=== PATIENT | male | born 1960 | race Caucasian/White ===

== ENCOUNTER 2017-06-19 07:51 | Day surgery (SDC) | payer OTHER ==
[2017-06-12 16:53] VITALS: BMI 28.7
[2017-06-19] MEDS ORDERED: PROPOFOL 20 ML ONE ×2 (07:54)
[2017-06-19] MEDS ORDERED: LIDOCAINE HCL/PF 2% SDV 5ML VIAL ONE (08:02)
[2017-06-19 08:08] VITALS: TEMP 97.9
[2017-06-19 10:20] VITALS: BP 116/78; PULSE 65
--- NOTE | 2017-06-21 15:01 | PATH ---
Surgical Pathology Report Patient Name: LUIS ALFREDO SOLO [facility]. Rec. #: [id number] /Age/Gender: 1960 (Age: 56) / M Account: [id number] Location: [facility]-ENDOS[facility] Taken: 06/19/2017 Received: 06/19/2017 Reported: 06/21/2017 Physicians: Nithin Lennon M.D. Specimen(s) Received A: BX CECUM B: BX RIGHT COLON C: BX TRANSVERSE COLON D: BX LEFT COLON E: BX SIGMOID F: BX DISTAL SIGMOID G: BX RECTO SIGMOID H: BX RECTUM Clinical History History of ulcerative colitis Rule out dysplasia Final Diagnosis A. CECUM, BIOPSY: COLONIC MUCOSA SHOWING BENIGN/REACTIVE LYMPHOID AGGREGATE. NEGATIVE FOR COLITIS AND DYSPLASIA. B. RIGHT COLON, BIOPSY: COLONIC MUCOSA SHOWING BENIGN/REACTIVE LYMPHOID AGGREGATE. NEGATIVE FOR COLITIS AND DYSPLASIA. C. TRANSVERSE COLON, BIOPSY: COLONIC MUCOSA SHOWING BENIGN/REACTIVE LYMPHOID AGGREGATES. NEGATIVE FOR COLITIS AND DYSPLASIA. D. LEFT COLON, BIOPSY: COLONIC MUCOSA SHOWING BENIGN/REACTIVE LYMPHOID AGGREGATES. NEGATIVE FOR COLITIS AND DYSPLASIA. E. SIGMOID, BIOPSY: MODERATE CHRONIC ACTIVE COLITIS. NEGATIVE FOR DYSPLASIA. F. DISTAL SIGMOID, BIOPSY: MODERATE CHRONIC ACTIVE COLITIS. NEGATIVE FOR DYSPLASIA. G. RECTOSIGMOID, BIOPSY: MODERATE CHRONIC ACTIVE COLITIS. NEGATIVE FOR DYSPLASIA. H. RECTUM, BIOPSY: MODERATE CHRONIC ACTIVE PROCTITIS. NEGATIVE FOR DYSPLASIA. Electronically Signed Mary Ann Correa M.D. Gross Description A. Received in formalin, labeled "cecum" are 3 mata, irregular portions of soft tissue ranging from 0.2-0.4 cm. in greatest dimension. The specimens are submitted in toto in one cassette. B. Received in formalin, labeled "right colon" are 4 mata, irregular portions of soft tissue ranging from 0.2-0.3 cm. in greatest dimension. The specimens are submitted in toto in one cassette. C. Received in formalin, labeled "transverse" are 5 mata, irregular portions of soft tissue ranging from 0.1-0.2 cm. in greatest dimension. The specimens are submitted in toto in one cassette. D. Received in formalin, labeled "left colon" are 3 mata, irregular portions of soft tissue averaging 0.2 cm. in greatest dimension. The specimens are submitted in toto in one cassette. E. Received in formalin, labeled "sigmoid" are 4 mata, irregular portions of soft tissue ranging from 0.2-0.5 cm. in greatest dimension. The specimens are submitted in toto in one cassette. F. Received in formalin, labeled "distal sigmoid" are 4 mata, irregular portions of soft tissue ranging from 0.2-0.3 cm. in greatest dimension. The specimens are submitted in toto in one cassette. G. Received in formalin, labeled "rectosigmoid" are 4 mata, irregular portions of soft tissue ranging from 0.2-0.6 cm. in greatest dimension. The specimens are submitted in toto in one cassette. H. Received in formalin, labeled "rectum" are 4 mata, irregular portions of soft tissue ranging from 0.2-0.3 cm. in greatest dimension. The specimens are submitted in toto in one cassette. 06/19/201706/19/2017
== END 2017-06-19 10:25 | disposition home or self-care (01) ==
LOC: FASU-ENDO 07:51
PROVIDERS: ATTEND Internal Medicine Gastroenterology
PROC: 0DBP8ZX Excision of Rectum, Via Natural or Artificial Opening Endoscopic, Diagnostic (ICD-10-PCS; principal; 2017-06-19 09:14)
PROC: 0DBN8ZX Excision of Sigmoid Colon, Via Natural or Artificial Opening Endoscopic, Diagnostic (ICD-10-PCS; 2017-06-19 09:14)
DX: K51.90 Ulcerative colitis, unspecified, without complications (principal)
CPT/HCPCS: 88305-TC

== ENCOUNTER 2019-07-30 07:20 | Day surgery (SDC) | payer OTHER ==
[2019-07-28 13:12] VITALS: BMI 28.2
[2019-07-30] MEDS ORDERED: PROPOFOL 20 ML ONE ×2 (07:53)
[2019-07-30 07:59] VITALS: TEMP 98
[2019-07-30 09:08] VITALS: BP 119/71; PULSE 77
--- NOTE | 2019-07-31 14:14 | PATH ---
Surgical Pathology Report Patient Name: LUIS ALFREDO SOLO [facility]. Rec. #: [id number] /Age/Gender: 1960 (Age: 58) / M Account: [id number] Location: [facility] Taken: 07/30/2019 Received: 07/30/2019 Reported: 07/31/2019 Physicians: Nithin Lennon M.D. Specimen(s) Received A: RANDOM CECUM B: RANDOM RIGHT COLON C: RANDOM TRANSVERSE COLON D: RANDOM LEFT COLON E: RANDOM SIGMOID COLON F: RANDOM RECTO-SIGMOID COLON G: RANDOM RECTUM Clinical History Ulcerative colitis Postoperative diagnosis: Same Final Diagnosis A. RANDOM CECUM, BIOPSY: COLONIC MUCOSA WITH PROMINENT LYMPHOID AGGREGATES WITHIN LAMINA PROPRIA. NO ACTIVE INFLAMMATION OR SIGNIFICANT ARCHITECTURAL DISTORTION IDENTIFIED. NO GRANULOMA OR DYSPLASIA IDENTIFIED. B. RANDOM COLON, RIGHT, BIOPSY: COLONIC MUCOSA WITH MILD ARCHITECTURAL DISTORTION AND PROMINENT LYMPHOID AGGREGATES WITHIN LAMINA PROPRIA. NO ACUTE INFLAMMATION IDENTIFIED. NO GRANULOMA OR DYSPLASIA IDENTIFIED. C. RANDOM TRANSVERSE COLON, BIOPSY: ONE FRAGMENT OF COLONIC MUCOSA WITH SEVERE CHRONIC ACTIVE COLITIS. SEPARATE FRAGMENTS OF COLONIC MUCOSA WITH MILD ARCHITECTURAL DISTORTION AND PROMINENT LYMPHOID AGGREGATES. NO GRANULOMA OR DYSPLASIA IDENTIFIED. D. RANDOM COLON, LEFT, BIOPSY: COLONIC MUCOSA WITH MILD ARCHITECTURAL DISTORTION AND PROMINENT LYMPHOID AGGREGATES WITHIN LAMINA PROPRIA. NO ACUTE INFLAMMATION IDENTIFIED. NO GRANULOMA OR DYSPLASIA IDENTIFIED. E. RANDOM SIGMOID COLON, BIOPSY: TWO FRAGMENTS OF COLONIC MUCOSA WITH MODERATE TO SEVERE CHRONIC ACTIVE COLITIS. SEPARATE FRAGMENTS OF COLONIC MUCOSA WITH MILD ARCHITECTURAL DISTORTION AND PROMINENT LYMPHOID AGGREGATES. NO GRANULOMA OR DYSPLASIA IDENTIFIED. F. RANDOM RECTOSIGMOID COLON, BIOPSY: COLONIC MUCOSA WITH MILD ARCHITECTURAL DISTORTION, PATCHY INCREASE IN ACUTE AND CHRONIC INFLAMMATORY INFILTRATE AND PROMINENT LYMPHOID AGGREGATES WITHIN LAMINA PROPRIA. NO GRANULOMA OR DYSPLASIA IDENTIFIED. G. RANDOM RECTUM, BIOPSY: COLONIC MUCOSA WITH MILD ARCHITECTURAL DISTORTION, PATCHY INCREASE IN ACUTE AND CHRONIC INFLAMMATORY INFILTRATE AND PROMINENT LYMPHOID AGGREGATES WITHIN LAMINA PROPRIA. NO GRANULOMA OR DYSPLASIA IDENTIFIED. Electronically Signed Heide Latham M.D. Gross Description A. Received in formalin, labeled "biopsy random cecum" are 4 mata, irregular portions of soft tissue ranging from 0.2-0.4 cm. in greatest dimension. The specimens are submitted in toto in one cassette. B. Received in formalin, labeled "biopsy random right colon" are 4 mata, irregular portions of soft tissue ranging from 0.3-0.4 cm. in greatest dimension. The specimens are submitted in toto in one cassette. C. Received in formalin, labeled "biopsy random transverse colon" are 4 mata, irregular portions of soft tissue ranging from 0.2-1.0 cm. in greatest dimension. The specimens are submitted in toto in one cassette. D. Received in formalin, labeled "biopsy random left colon" are 4 mata, irregular portions of soft tissue ranging from 0.3-0.4 cm. in greatest dimension. The specimens are submitted in toto in one cassette. E. Received in formalin, labeled "biopsy random sigmoid colon" are 4 mata, irregular portions of soft tissue averaging 0.3 cm. in greatest dimension. The specimens are submitted in toto in one cassette. F. Received in formalin, labeled "biopsy random rectosigmoid colon" are 4 mata, irregular portions of soft tissue ranging from 0.3-0.5 cm. in greatest dimension. The specimens are submitted in toto in one cassette. G. Received in formalin, labeled "biopsy random rectum" are 3 mata, irregular portions of soft tissue ranging from 0.2-0.7 cm. in greatest dimension. The specimens are submitted in toto in one cassette. 07/30/2019 [facility]07/30/2019
== END 2019-07-30 09:05 | disposition home or self-care (01) ==
LOC: FASU-ENDO 07:20
PROVIDERS: ATTEND Internal Medicine Gastroenterology
PROC: 0DBL8ZX Excision of Transverse Colon, Via Natural or Artificial Opening Endoscopic, Diagnostic (ICD-10-PCS; 2019-07-30)
PROC: 0DBN8ZX Excision of Sigmoid Colon, Via Natural or Artificial Opening Endoscopic, Diagnostic (ICD-10-PCS; 2019-07-30)
PROC: 0DBP8ZX Excision of Rectum, Via Natural or Artificial Opening Endoscopic, Diagnostic (ICD-10-PCS; 2019-07-30)
PROC: 0DBM8ZX Excision of Descending Colon, Via Natural or Artificial Opening Endoscopic, Diagnostic (ICD-10-PCS; 2019-07-30)
PROC: 0DBH8ZX Excision of Cecum, Via Natural or Artificial Opening Endoscopic, Diagnostic (ICD-10-PCS; 2019-07-30)
PROC: 0DBK8ZX Excision of Ascending Colon, Via Natural or Artificial Opening Endoscopic, Diagnostic (ICD-10-PCS; principal; 2019-07-30 08:11)
DX: Z13.811 Encounter for screening for lower gastrointestinal disorder (principal); K52.89 Other specified noninfective gastroenteritis and colitis
CPT/HCPCS: 88305-TC

== ENCOUNTER 2021-09-11 09:15 | Day surgery (SDC) | payer OTHER ==
[2021-09-08 15:33] VITALS: BMI 29.0
[2021-09-11] MEDS ORDERED: LIDOCAINE HCL/PF 2% SDV 5ML VIAL ONE (10:59)
[2021-09-11] MEDS ORDERED: PROPOFOL 20 ML ONE ×4 (10:59)
[2021-09-11 11:58] VITALS: TEMP 97.6
[2021-09-11 12:11] VITALS: BP 108/79; PULSE 76
== END 2021-09-11 12:13 | disposition home or self-care (01) ==
LOC: FASU-ENDO 09:15
PROVIDERS: ATTEND Internal Medicine Gastroenterology
PROC: 0DBL8ZX Excision of Transverse Colon, Via Natural or Artificial Opening Endoscopic, Diagnostic (ICD-10-PCS; 2021-09-11)
PROC: 0DBN8ZX Excision of Sigmoid Colon, Via Natural or Artificial Opening Endoscopic, Diagnostic (ICD-10-PCS; 2021-09-11)
PROC: 0DBH8ZX Excision of Cecum, Via Natural or Artificial Opening Endoscopic, Diagnostic (ICD-10-PCS; 2021-09-11)
PROC: 0DB98ZX Excision of Duodenum, Via Natural or Artificial Opening Endoscopic, Diagnostic (ICD-10-PCS; 2021-09-11)
PROC: 0DB68ZX Excision of Stomach, Via Natural or Artificial Opening Endoscopic, Diagnostic (ICD-10-PCS; 2021-09-11)
PROC: 0DBK8ZX Excision of Ascending Colon, Via Natural or Artificial Opening Endoscopic, Diagnostic (ICD-10-PCS; principal; 2021-09-11 11:07)
DX: K52.89 Other specified noninfective gastroenteritis and colitis (principal); K29.50 Unspecified chronic gastritis without bleeding; K21.00 Gastro-esophageal reflux disease with esophagitis, without bleeding; K44.9 Diaphragmatic hernia without obstruction or gangrene; Z87.19 Personal history of other diseases of the digestive system; R12 Heartburn

== ENCOUNTER 2023-07-10 07:11 | Day surgery (SDC) | payer OTHER ==
[2023-07-08 14:20] VITALS: BMI 28.2
[2023-07-10] MEDS ORDERED: LIDOCAINE HCL/PF 2% SDV 5ML VIAL ONE (07:24)
[2023-07-10] MEDS ORDERED: PROPOFOL 160 ML ONE (07:24)
[2023-07-10 08:49] VITALS: RESP 16; TEMP 97.3
[2023-07-10 09:00] VITALS: BP 115/76; PULSE 64
== END 2023-07-10 09:20 | disposition home or self-care (01) ==
LOC: FASU-ENDO 07:11
PROVIDERS: ATTEND Internal Medicine Gastroenterology
PROC: 0DBL8ZX Excision of Transverse Colon, Via Natural or Artificial Opening Endoscopic, Diagnostic (ICD-10-PCS; 2023-07-10)
PROC: 0DBN8ZX Excision of Sigmoid Colon, Via Natural or Artificial Opening Endoscopic, Diagnostic (ICD-10-PCS; 2023-07-10)
PROC: 0DBP8ZX Excision of Rectum, Via Natural or Artificial Opening Endoscopic, Diagnostic (ICD-10-PCS; 2023-07-10)
PROC: 0DBM8ZX Excision of Descending Colon, Via Natural or Artificial Opening Endoscopic, Diagnostic (ICD-10-PCS; 2023-07-10)
PROC: 0DBH8ZX Excision of Cecum, Via Natural or Artificial Opening Endoscopic, Diagnostic (ICD-10-PCS; 2023-07-10)
PROC: 0DBK8ZX Excision of Ascending Colon, Via Natural or Artificial Opening Endoscopic, Diagnostic (ICD-10-PCS; principal; 2023-07-10 08:19)
DX: K51.90 Ulcerative colitis, unspecified, without complications (principal); K63.89 Other specified diseases of intestine; Z87.19 Personal history of other diseases of the digestive system